=== PATIENT | female | born 2000 | race Asian ===

== ENCOUNTER 2024-09-29 16:41 | Inpatient (IN) | payer BC ==
[~2024-09-29] VITALS: Ht 154.9 cm; Wt 54.1 kg
[2024-09-29] MEDS ORDERED: CHOL400T56 PO (16:51)
[2024-09-29] MEDS ORDERED: OLAN2.5T78 PO (16:51)
[2024-09-29] MEDS ORDERED: ETON68IM4 SD (16:51)
[2024-09-29] MEDS ORDERED: FLUV50 PO ×2 (16:51)
[2024-09-29 17:00] LABS: COVID AG,FIA SOURCE NASAL SWAB
[2024-09-29 17:03] LABS: BASOPHILS % (AUTO) 0.5 % (0.0-2.0); EOSINOPHILS % (AUTO) 4.1 % (1.0-6.0); HEMOGLOBIN 12.1 g/dL (12.0-16.0); LYMPHOCYTES # (AUTO) 1.5 K/uL (1.0-4.8); LYMPHOCYTES % (AUTO) 19.1 % (22.0-44.0); MEAN CORPUSCULAR HEMOGLOBIN 23.1 pg (26.0-34.0); MEAN CORPUSCULAR HGB CONC 31.8 G/dL (31.0-37.0); MEAN CORPUSCULAR VOLUME 73 fL (80-100); MONOCYTES # (AUTO) 0.7 K/uL (0.1-1.0); NEUTROPHILS # (AUTO) 5.3 K/uL (1.8-7.7); NEUTROPHILS % (AUTO) 67.3 % (40.0-70.0); PLATELET COUNT (AUTO) 312 K/uL (150-450); RED BLOOD CELL COUNT(AUTO) 5.24 MIL/uL (4.00-5.20); RED CELL DISTRIBUTION WIDTH 14.4 % (11.5-14.5); WHITE BLOOD COUNT (AUTO) 7.9 K/uL (4.5-11.0)
[2024-09-29 17:06] LABS: ANION GAP 9 mmol/L (8-16); CALCIUM, TOTAL 9.5 mg/dL (8.8-10.5); CARBON DIOXIDE 27 mmol/L (22-29); CHLORIDE 106 mmol/L (98-107); CREATININE 0.65 mg/dL (0.60-1.30); GLOMERULAR FILTR. RATE CALC > 60 mL/min (>60); GLUCOSE,RANDOM 79 mg/dL (70-110); POTASSIUM 4.1 mmol/L (3.5-5.1); SODIUM SERUM 142 mmol/L (136-145); UREA NITROGEN, BLOOD 12 mg/dL (7-18)
[2024-09-29 17:09] LABS: ALCOHOL, URINE DRUG SCREEN NEGATIVE (NEGATIVE); AMPHET/METH SCREEN,URINE NEGATIVE (NEGATIVE); BARBITURATE SCREEN, URINE NEGATIVE (NEGATIVE); BENZODIAZEPINES SCREEN,URINE NEGATIVE (NEGATIVE); CANNABINOID SCREEN,URINE NEGATIVE (NEGATIVE); COCAINE SCREEN,URINE NEGATIVE (NEGATIVE); METHADONE SCREEN, URINE NEGATIVE (NEGATIVE); OPIATE SCREEN,URINE NEGATIVE (NEGATIVE); PHENCYCLIDINE SCREEN,URINE NEGATIVE (NEGATIVE)
[2024-09-29 17:19] LABS: SARS-COV2 (COVID) ANTIGEN,FIA Negative (Negative)
[2024-09-29 17:26] LABS: ALCOHOL, BLOOD (SERUM) < 3 mg/dL (0-10)
[2024-09-29 17:39] LABS: RBC MORPHOLOGY COMMENT ABNORMAL RBC MORPH
[2024-09-29] MEDS ORDERED: ZOLPIDEM TARTRATE 10 MG TABLET PO PRN (18:45)
[2024-09-29] MEDS ORDERED: haloperidoL 5 MG TABLET PO PRN (18:45)
[2024-09-29] MEDS ORDERED: LORazepam 2 MG TABLET PO PRN (18:45)
[2024-09-30 01:31] VITALS: O2SAT 98
[2024-09-30 03:18] VITALS: BP 118/71; PULSE 90; RESP 16; TEMP 98.5; O2SAT 99
[2024-09-30 09:23] VITALS: BP 108/71; PULSE 88; RESP 16; TEMP 97.7; O2SAT 97
[2024-09-30 09:57] LABS: HEMOGLOBIN A1C 4.8 % (3.8-5.6)
[2024-09-30 09:58] LABS: CHOL/HDL RATIO 2.2 (3.9-5.7); FREE T4 (FREE THYROXINE) 0.91 ng/dL (0.76-1.46); THYROID STIMULATING HORMONE 1.83 uIU/mL (0.36-3.74)
[2024-09-30 10:10] LABS: APPEARANCE,URINE HAZY (CLEAR); BILIRUBIN,URINE NEGATIVE (NEGATIVE); COLOR,URINE LIGHT YELLOW (YELLOW); GLUCOSE, URINE (UA) NEGATIVE (NEGATIVE); KETONES,URINE TRACE mg/dL (NEGATIVE); LEUKOCYTE ESTERASE ,URINE LARGE (NEGATIVE); NITRATE,URINE NEGATIVE (NEGATIVE); OCCULT BLOOD,URINE NEGATIVE (NEGATIVE); PH,URINE 6.5 (5.0-8.0); PROTEIN,URINE TRACE mg/dL (NEGATIVE); SPECIFIC GRAVITIY, URINE 1.023 (1.003-1.030); UROBILINOGEN,URINE <=1.0 mg/dL (<=1.0)
[2024-09-30 10:48] LABS: RBC,URINE None Seen /HPF (0-2)
[2024-09-30 10:49] LABS: BACTERIA,URINE Few /HPF (None Seen); SQUAMOUS EPITHELIAL CELL,UR Few /LPF (None Seen); WBC,URINE 26-50 /HPF (0-5)
[2024-09-30] MEDS ORDERED: LORazepam 1 MG TABLET PO PRN (13:15)
[2024-09-30] MEDS ORDERED: ZOLPIDEM TARTRATE 5 MG TABLET PO PRN (13:15)
[2024-09-30] MEDS: LITHIUM CARBONATE 300 MG CAPSULE PO SCH (13:49)
[2024-09-30] MEDS: FluvoxaMINE MALEATE 50 MG TABLET PO SCH (13:50)
[2024-09-30] MEDS: levoFLOXacin 500 MG TABLET PO SCH (14:02)
[2024-09-30 20:23] VITALS: BP 116/72; PULSE 86; RESP 16; TEMP 97.5; O2SAT 97
[2024-09-30] MEDS: OLANZapine 5 MG TABLET PO SCH (20:38)
[2024-10-01 02:07] LABS: HEPATITIS C AB (EIA) Non Reactive (Non Reactive)
[2024-10-01 08:00] VITALS: BP 101/62; PULSE 64; RESP 18; TEMP 99.1; O2SAT 97
[2024-10-01] MEDS ORDERED: ONDANSETRON 4 MG TABLET PO PRN (12:30)
[2024-10-01] MEDS ORDERED: ALBUTEROL SULFATE HFA 90 MCG/PUFF 8 GM INHALER IH PRN (12:30)
[2024-10-01] MEDS ORDERED: LOPERAMIDE HCL 2 MG CAPSULE PO PRN (12:30)
[2024-10-01] MEDS ORDERED: DOCUSATE SODIUM 100 MG CAPSULE PO PRN (12:30)
[2024-10-01] MEDS ORDERED: ACETAMINOPHEN 325 MG TABLET PO PRN (12:30)
[2024-10-01] MEDS ORDERED: CloNIDine HCL 0.1 MG TABLET PO PRN (12:30)
[2024-10-01] MEDS ORDERED: NICOTINE 14 MG/24 HOUR PATCH TD PRN (12:30)
[2024-10-01] MEDS ORDERED: IBUPROFEN 400 MG TABLET PO PRN (12:30)
[2024-10-01] MEDS ORDERED: MAGNESIUM HYDROXIDE SUSPENSION 30 ML UDCUP PO PRN (12:30)
[2024-10-01] MEDS ORDERED: GuaiFENesin/D-METHORPHAN [SUGAR-FREE] 200-20MG/10 ML SYRUP UDCUP PO PRN (12:30)
[2024-10-01] MEDS ORDERED: MAG HYDROX/ALUMINUM HYD/SIMETH ES 30 ML SUSPENSION UDCUP PO PRN (12:30)
[2024-10-01] MEDS ORDERED: PETROLATUM,WHITE 28 GM JELLY TP PRN (12:30)
[2024-10-01 20:42] VITALS: BP 115/75; PULSE 74; RESP 17; TEMP 97.5; O2SAT 97
[2024-10-02 08:41] LABS: HEMOGLOBIN A1C 4.7 % (3.8-5.6)
[2024-10-02 08:51] LABS: CHOL/HDL RATIO 2.6 (3.9-5.7); THYROID STIMULATING HORMONE 2.33 uIU/mL (0.36-3.74)
[2024-10-02 11:46] VITALS: BP 100/66; PULSE 77; RESP 18; TEMP 97.7; O2SAT 97
[2024-10-02 20:44] VITALS: BP 119/76; PULSE 79; RESP 17; TEMP 97.6; O2SAT 97
[2024-10-03 08:43] VITALS: BP 97/65; PULSE 71; RESP 14; TEMP 97.8; O2SAT 98
[2024-10-03 20:23] VITALS: BP 107/65; PULSE 73; RESP 16; TEMP 97.7; O2SAT 98
[2024-10-04] MEDS ORDERED: FLUV50 PO (06:55)
[2024-10-04] MEDS ORDERED: OLAN5TAB52 PO (06:55)
[2024-10-04] MEDS ORDERED: LITH300C3 PO (06:55)
[2024-10-04 08:38] VITALS: BP 131/60; PULSE 75; RESP 16; TEMP 97.3; O2SAT 99
[2024-10-04 10:37] LABS: APPEARANCE,URINE CLEAR (CLEAR); BILIRUBIN,URINE NEGATIVE (NEGATIVE); COLOR,URINE YELLOW (YELLOW); GLUCOSE, URINE (UA) NEGATIVE (NEGATIVE); KETONES,URINE TRACE mg/dL (NEGATIVE); LEUKOCYTE ESTERASE ,URINE SMALL (NEGATIVE); NITRATE,URINE NEGATIVE (NEGATIVE); OCCULT BLOOD,URINE NEGATIVE (NEGATIVE); PH,URINE 7.5 (5.0-8.0); PH,URINE DRUG SCREEN 7.5 (5.0-8.0); PROTEIN,URINE TRACE mg/dL (NEGATIVE); SPECIFIC GRAVITIY, URINE 1.027 (1.003-1.030)
[2024-10-04 10:42] LABS: AMPHET/METH SCREEN,URINE NEGATIVE (NEGATIVE); BARBITURATE SCREEN, URINE NEGATIVE (NEGATIVE); BENZODIAZEPINES SCREEN,URINE NEGATIVE (NEGATIVE); CANNABINOID SCREEN,URINE NEGATIVE (NEGATIVE); METHADONE SCREEN, URINE NEGATIVE (NEGATIVE); OPIATE SCREEN,URINE POSITIVE (NEGATIVE); PHENCYCLIDINE SCREEN,URINE NEGATIVE (NEGATIVE)
[2024-10-04 11:02] LABS: RBC,URINE None Seen /HPF (0-2)
[2024-10-04 11:03] LABS: BACTERIA,URINE Moderate /HPF (None Seen); SQUAMOUS EPITHELIAL CELL,UR Moderate /LPF (None Seen)
[2024-10-04 11:16] LABS: ALCOHOL, URINE DRUG SCREEN NEGATIVE (NEGATIVE); COCAINE SCREEN,URINE NEGATIVE (NEGATIVE)
== END 2024-10-04 10:12 | disposition home or self-care (01) | DRG 885 ==
LOC: EMS 16:43 → B2S 09-30 01:58
PROVIDERS: ADMIT Psychiatry & Neurology Psychiatry; ATTEND Psychiatry & Neurology Psychiatry
PROC: GZHZZZZ Group Psychotherapy (ICD-10-PCS; principal; 2024-09-30)
DX: F25.0 Schizoaffective disorder, bipolar type (principal); N39.0 Urinary tract infection, site not specified; R45.851 Suicidal ideations; Z20.822 Contact with and (suspected) exposure to COVID-19; F43.12 Post-traumatic stress disorder, chronic; F60.3 Borderline personality disorder; G47.00 Insomnia, unspecified; F41.9 Anxiety disorder, unspecified; F42.9 Obsessive-compulsive disorder, unspecified; Z88.1 Allergy status to other antibiotic agents; Z79.899 Other long term (current) drug therapy; Z91.51 Personal history of suicidal behavior
CPT/HCPCS: 80048; 80061; 80178; 80307; 81001; 83036; 84439; 84443; 84703; 85025; 86803; 87081; 87086; 87340; 99285; G0480